=== PATIENT | male | born 1970 | race Caucasian/White ===

== ENCOUNTER → 2021-01-07 08:09 | Outpatient (CLI) | payer OTHER ==
--- NOTE | ~2021-01-07 | EC ---
PATIENT:BANG LEMUS DATE OF SERVICE: 01/07/21 SEX: M MEDICAL RECORD: [id number] DATE OF : [birth year] LOCATION:[facility] AGE OF PATIENT: 50 ADMISSION DATE: 01/07/21 REFERRING PHYSICIAN: INTERPRETING PHYSICIAN: MARTY MARIO MD ECHOCARDIOGRAM REPORT ECHO CHARGES 4 ECHO COMPLETE Date: 01/07/21 CLINICAL DIAGNOSIS: CARDIAC ARRHYTHMIA/HEART MURMUR ECHOCARDIOGRAPHIC MEASUREMENTS (adult normal given) AC root (d.<3.7cm) 3.7 cm LV Septum d (<1.2 cm> 1.2 cm Valve Excursion 1.1 cm LV Septum (systole) 1.4 cm Left Atria (s.<4.0cm> 3.1 cm LVPW d(<1.2cm) 1.4 cm RV (d.<2.3cm) 3.0 cm LVPW (sytole) 1.5 cm LV diastole(<5.6CM) 4.5 cm MV E-F(>70mm/sec) cm LV systole 3.5 cm LVOT Diameter 2.2 cm MV exc.(>10mm) 1.9 cm Est.ejection fraction (50-75%) % DOPPLER: LVIT cm/sec A 77.0 cm/sec E 52.0 cm/sec LA cm/sec RVSP 30 mmHg LVOT 84 cm/sec AOP1/2T m/s Asc. 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 Bermeo TAPE# PACS Pericardial Effusion N DATE OF SERVICE: ECHOCARDIOGRAM REPORT FINDINGS: Borderline LVH. LV internal dimensions are normal. Wall motion is normal. EF is greater than or equal to 55%. Aortic valve is tricuspid. Good valve excursion. No significant AI by color flow imaging. Left atrium is normal. Mitral valve appears normal. Trivial MR. Right side is grossly normal. Trivial TR. ECHOCARDIOGRAM REPORT [id number] BANG LEMUS TRANSINT:[id number] Voice Confirmation ID: [id number] DOCUMENT ID: [id number] MARTY MARIO MD CC: [id number] DICTATION DATE: 01/07/21 1657 NONPROFIT DIRECTOR: 01/08/21 0032 DEP CLI 01/07/21 [facility] [address] [id number]
--- NOTE | ~2021-01-07 | ST ---
PATIENT:BANG LEMUS MEDICAL RECORD: [id number] SEX: M LOCATION:[facility] ORDER #: ADMISSION DATE: 01/07/21 AGE OF PATIENT: 50 REFERRING PHYSICIAN: INTERPRETING PHYSICIAN: MARTY MARIO MD DATE OF SERVICE: 01/07/2021 FINDINGS: Gated is normal. Normal wall motion. Normal wall thickening. Calculated EF 56%. SPECT IMAGING: SPECT imaging short axis view shows good uptake along the anterior wall, lateral wall and inferior wall. HORIZONTAL AXIS: Horizontal axis confirms good uptake along the anterior wall and inferior wall. VERTICAL AXIS: Vertical axis shows good uptake along the lateral wall and septum. FINAL IMPRESSION: 1. Normal gated, normal wall motion, ejection fraction 56%. 2. Normal SPECT imaging. FINAL RECOMMENDATION: The scan is felt low risk for any significant myocardial ischemia or previous myocardial infarction. LV function remains normal. Continue medical management and risk factor modification is recommended. 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
== END | disposition home or self-care (01) ==
LOC: D.HCCECHO 01-04 08:30
PROVIDERS: ATTEND Internal Medicine Interventional Cardiology
DX: I49.9 Cardiac arrhythmia, unspecified (principal); I20.9 Angina pectoris, unspecified